=== PATIENT | female | born 1960 | race Caucasian/White ===

== ENCOUNTER 2019-01-21 07:46 | Day surgery (SDC) | payer MEDICARE ==
[2019-01-21] MEDS ORDERED: LACTATED RINGERS 1,000 ML IV.SOLN IV ONE (08:48)
[2019-01-21] MEDS ORDERED: fentaNYL CITRATE/PF 100 MCG/2 ML INJ. ONE (08:48)
[2019-01-21] MEDS ORDERED: BUPIVACAINE HCL 0.25% (2.5MG/ML) PF 10ML VIAL IV ONE (08:48)
[2019-01-21] MEDS ORDERED: LIDOCAINE HCL 2% PF 100MG/5ML VIAL IJ ONE (08:48)
[2019-01-21] MEDS ORDERED: MIDAZOLAM HCL 2 MG/2 ML VIAL ONE (08:48)
[2019-01-21] MEDS ORDERED: LACTATED RINGERS 1,000 ML IV ONE (12:44)
[2019-01-21] MEDS ORDERED: KETOROLAC TROMETHAMINE 30 MG/1ML VIAL ONE (13:06)
--- NOTE | 2019-03-17 10:45 | Operative Note ---
PROCEDURE DATE: 01/21/2019 PREOPERATIVE DIAGNOSIS: Bilateral carpal tunnel syndrome. POSTOPERATIVE DIAGNOSIS: Bilateral carpal tunnel syndrome. PROCEDURES PERFORMED: 1. Endoscopic decompression of the median nerve at the left wrist. 2. Endoscopic decompression of the ulnar nerve at the left wrist. SURGEON: Sam Coyle Jr., M.D. PRODUCTION PATTERN MAKER: None. ANESTHESIA: Local with IV sedation. COMPLICATIONS: None. CONDITION FOLLOWING THE PROCEDURE: Good. OPERATIVE FINDINGS: This patient has carpal tunnel syndrome documented electromyographically. Left hand surgery is being carried out today. DESCRIPTION OF PROCEDURE: The patient was taken to the operating room and placed in supine position. Skin infiltration with 2% lidocaine was carried out on the ulnar side of the wrist proximal to the wrist crease. It was also carried out at the ulnar aspect of the proximal palmar crease. The arm was then thoroughly scrubbed and sterilely prepped and draped. The arm was exsanguinated and tourniquet inflated. A small transverse incision was made on the ulnar aspect proximal to the wrist. Causey scissors were then used to penetrate the volar fascia and enter the carpal canal. A skin incision was also made within the skin crease at the confluence of a line extended from the ring finger and a line extended transversely from the base of the thumb-index webspace. The cannula with a boat obturator was then placed into the carpal tunnel through the proximal incision. The floor and the hamate were carefully probed sweeping all tendinous structures and soft tissue structures to the radial side. Keeping the boat obturator and the cannula directed in all the directions, the carpal tunnel was completely traversed holding on the soft tissue and tendinous structures to the radial side. Care was taken not to pass the cannula into Guyon canal. The boat obturator was then led to be externalized through the transverse incisions made in the palm. The opening in the cannula was then directed in the ulnar direction. The obturator was then removed, and the wrist was placed into the holding tray with hyperextension and digits held in extension. A cotton applicator was passed through the cannula. The endoscope was then inserted, visualizing the transverse carpal ligament and its confluence with the Guyon canal. Repositioning would be carried out if any tendinous structures were found creating an obstructive view of the transverse carpal ligament. Once a transverse carpal ligament unobstructed view was obtained, the white handle knife blade was inserted, and the proximal aspect of the transverse carpal ligament in its most ulnar extent was engaged. The knife was advanced, cutting through the layers of the transverse carpal ligament layer by layer until Guyon canal was entered. It was continued distally, and also a retrograded knife was used to engage the most distal aspect of the transverse carpal ligament and usually some hypothenar muscular fibers were engaged as well. Complete unification of the Guyon canal and the carpal canal was thus performed by dividing the transverse carpal ligament at its insertion on the hamate which left the transverse carpal ligament and the covering of the Guyon canal as an intact structure, now away from the hamate and carpus. Good visualization of the ulnar neurovascular bundle was thus afforded. The cannula was then removed and, using a Ragnell retractor and appropriate lighting, the volar fascia was divided under direct visualization proximally and distally from the small transverse hole proximal to the wrist to be sure that it joined and even helped with proper unification. Copious irrigation was followed by closure of the wound with 4-0 Ethilon. A sterile bulky dressing was applied. The patient was then taken to the recovery room in good condition. SAM COYLE JR., M.D. RAMAKRISHNA/daniel (Please copy SA provider when applicable) Job #[id number] CHRISTY
== END 2019-01-21 14:15 | disposition home or self-care (01) ==
LOC: OPSURG 07:46
PROVIDERS: ATTEND Orthopaedic Surgery
DX: G56.03 Carpal tunnel syndrome, bilateral upper limbs (principal)
CPT/HCPCS: 29848; J1885; J2001; J2250; J3010; J3490; J7120

== ENCOUNTER 2019-03-22 11:11 | Outpatient (CLI) | payer MEDICARE ==
[~2019-03-22 11:11] MED LIST: BUPIVACAINE HCL 0.5% (5MG/ML) PF 10ML VIAL IV ONE; FAMOTIDINE 20 MG/2 ML VIAL IV ONE; LABETALOL HCL 20 MG/4 ML SYRINGE IV ONE; LACTATED RINGERS 1,000 ML IV.SOLN IV ONE; Lidocaine 1% 5ml 10 MG/ML VIAL ONE; MIDAZOLAM HCL 2 MG/2 ML VIAL ONE; ONDANSETRON HCL/PF 4 MG/ 2ML VIAL ONE; TRIAMCINOLONE ACETONID 40MG/ML VIAL ONE; fentaNYL CITRATE/PF 100 MCG/2 ML INJ. ONE; oxyCODONE/ACETAMINOPHEN 5/325 TABLET PO ONE
== END 2019-03-22 13:14 ==
LOC: OUT 11:11
PROVIDERS: ATTEND Physical Medicine & Rehabilitation
DX: M54.81 Occipital neuralgia (principal)
CPT/HCPCS: 64405; 64450; A9270; J2250; J2405; J3010; J3301; J3490; J7120

== ENCOUNTER 2019-04-12 13:48 | Outpatient (CLI) | payer MEDICARE ==
[~2019-04-12 13:48] MED LIST changes: +0.9 % SODIUM CHLORIDE PF 10 ML VIAL IJ ONE; -BUPIVACAINE HCL 0.5% (5MG/ML) PF 10ML VIAL IV ONE; +DEXAMETHASONE SODIUM PHOSPHATE 10 MG/ML VIAL ONE; -FAMOTIDINE 20 MG/2 ML VIAL IV ONE; +IOHEXOL 240 MG/ML BOTTLE 50 ML ONE; -LABETALOL HCL 20 MG/4 ML SYRINGE IV ONE; -LACTATED RINGERS 1,000 ML IV.SOLN IV ONE; -MIDAZOLAM HCL 2 MG/2 ML VIAL ONE; -ONDANSETRON HCL/PF 4 MG/ 2ML VIAL ONE; -TRIAMCINOLONE ACETONID 40MG/ML VIAL ONE; -fentaNYL CITRATE/PF 100 MCG/2 ML INJ. ONE; -oxyCODONE/ACETAMINOPHEN 5/325 TABLET PO ONE
== END 2019-04-12 14:15 ==
LOC: OUT 13:48
PROVIDERS: ATTEND Physical Medicine & Rehabilitation
DX: M54.12 Radiculopathy, cervical region (principal); M48.02 Spinal stenosis, cervical region; M54.2 Cervicalgia
CPT/HCPCS: 62321

== ENCOUNTER 2019-05-03 13:54 | Outpatient (CLI) | payer MEDICARE ==
--- NOTE | 2019-05-11 12:24 | OP Clinic Progress Note ---
DATE OF VISIT: 05/03/2019 CHIEF COMPLAINT: Neck pain and headaches. HPI: Mrs. Esparza is a 58-year-old female here for followup and medication refill. Most recently the patient had a cervical epidural steroid injection at the C7-T1 level on 04/12/2019. The patient denies any significant improvement in pain symptoms at this time. On 03/22/2019 however, the patient had bilateral greater occipital nerve and lesser occipital nerve blocks for which the patient feels improved her pain significantly. She would like to proceed with radiofrequency ablation. The patient continues on [place] and tizanidine with improvement in her pain symptoms. She does experience opioid induced constipation; however, this is controlled with daily Movantik. PFSH: Reviewed and unchanged. REVIEW OF SYSTEMS: A complete 14-point review of systems was completed. Musculoskeletal was positive for neck pain and neurologic was positive for headaches. PHYSICAL EXAMINATION: General: This is an obese female patient presenting in no acute distress. Vital Signs: Temperature 97.2. Pulse 77. Respiratory rate 16. Blood pressure 118/64. SaO2 96% on room air. Pain is rated 8/10 today. Psych: Alert and oriented x3. She is calm, pleasant and cooperative. HEENT: Normocephalic and atraumatic. Pupils are equal and round without miosis. Sclerae are clear. Musculoskeletal: Patient has tenderness to palpation over the bilateral greater and lesser occipital nerves. She also has tenderness to palpation over the cervical spinous processes, facets and paraspinals. Neuro: Cranial nerves II-XII are grossly intact. There are no focal deficits. The patient does walk with an antalgic gait. ASSESSMENT: Occipital neuralgia. PLAN: 1. I have ordered radiofrequency ablation of bilateral greater occipital nerves/lesser occipital nerves with Dr. Sherwood. 2. I have provided prescriptions of [place] 5/325 mg one p.o. t.i.d. #90, tizanidine 4 mg t.i.d. p.r.n. muscle spasms #90 and Movantik 25 mg 1 p.o. q day #30. 3. The patient is to follow up in one month or sooner if needed. The patient verbalizes understanding and agrees to the current treatment plan. Sincerely, Jennifer Ochoa NP Nurse Practitioner BIMAL/marsha JOB#: [id number] MTDD
== END 2019-05-03 14:54 ==
LOC: OUT 13:54
PROVIDERS: ATTEND Nurse Practitioner Adult Health
DX: M54.81 Occipital neuralgia (principal)
CPT/HCPCS: 99213; G0463

== ENCOUNTER 2019-06-07 14:37 | Outpatient (CLI) | payer MEDICARE ==
--- NOTE | 2019-06-10 11:30 | OP Clinic Progress Note ---
DATE OF VISIT: 06/07/2019 CHIEF COMPLAINT: Neck pain and headaches. HISTORY OF PRESENT ILLNESS: Ms. Esparza is a 58-year-old female patient here for followup and medication refills. Most recently the patient had cervical epidural steroid injections at the C7-T1 level on 04/12/2019. The patient did not have any significant improvement in her pain symptoms. On 03/22/2019, however, the patient had bilateral greater occipital nerve and lesser occipital nerve blocks which the patient feels improved her pain significantly. She would like to proceed with radiofrequency ablation. This was ordered at last visit, however, has been delayed at this time. The patient continues on [place] and tizanidine with improvement in her pain symptoms. Movantik helps with her opioid induced constipation allowing her to have a bowel movement nearly daily. PMFSH: Reviewed and unchanged. REVIEW OF SYSTEMS: A complete 14-point review of systems was completed. Musculoskeletal is positive for neck pain. Neurologic positive for headaches. PHYSICAL EXAMINATION: General: This is an obese female patient presenting in [facility]. Vital Signs: The patient's temperature is 98.7, pulse 94, respiratory rate 18, blood pressure 149/75 with an SAO2 of 98% on room air. Pain is rated at 7/10 today. Psych: She is alert and oriented x3. She is calm, pleasant and cooperative. HEENT: She is normocephalic and atraumatic. Pupils are equal and round without miosis. Sclerae clear. Musculoskeletal: The patient has tenderness to palpation over the bilateral greater and lesser occipital nerves. She also has tenderness to palpation over the cervical spinous processes, facets and paraspinals. Neurologic: Cranial nerves II through XII are grossly intact. There are no focal deficits. The patient does walk with an antalgic gait. ASSESSMENT: 1. Occipital neuralgia. PLAN: 1. The patient is to proceed with radiofrequency ablation of the bilateral greater occipital nerves and lesser occipital nerves when able. 2. I have refilled the patient's [place] 5/325 mg t.i.d. p.r.n., dispense #90 with no refills, tizanidine 4 mg t.i.d. p.r.n. muscle spasms #90 with two refills and Movantik 25 mg one p.o. q.d. #30 with two refills. 3. The patient is to follow up in one month or sooner if needed. The patient verbalizes understanding and agrees with the current treatment plan. Jennifer Ochoa NP Nurse Practitioner /[employer] [id number] /mab MTDD
== END 2019-06-07 15:37 ==
LOC: OUT 14:37
PROVIDERS: ATTEND Nurse Practitioner Adult Health
DX: M54.81 Occipital neuralgia (principal)
CPT/HCPCS: 99213; G0463